=== PATIENT | female | born 1970 | race Two or more races ===

== ENCOUNTER 2025-03-31 10:41 | Inpatient (IN) | payer OTHER ==
[~2025-03-31] VITALS: Ht 167.6 cm; Wt 81.6 kg
[2025-03-31] MEDS ORDERED: RESTORIL30 M1 PO (12:50)
[2025-03-31] MEDS ORDERED: DIVALPROEX SOD500 M1 PO (12:51)
[2025-03-31] MEDS ORDERED: CLONAZEPAM0.5 M1 PO (12:51)
[2025-03-31] MEDS ORDERED: HORIZANT300 MG (12:52)
[2025-03-31] MEDS ORDERED: FORFIVO XL450 MG PO (12:52)
[2025-03-31] MEDS ORDERED: SEROQUEL400 MG (12:53)
[2025-03-31] MEDS ORDERED: ACTOS30 MG (12:53)
[2025-03-31] MEDS ORDERED: RAMIPRIL5 MG (12:54)
[2025-03-31] MEDS ORDERED: LIPOFEN150 MG PO (12:54)
[2025-03-31] MEDS ORDERED: SIMVASTATIN40 MG (12:55)
[2025-03-31] MEDS ORDERED: LANTUS SOL100 UNIT/1 (12:56)
--- NOTE | 2025-03-31 13:02 | NUR ---
PTE ALERTA Y ORIENTADA REFIERE QUE SUFRIO CAIDA EN EL HOGAR QUE RESIDE Y QUE EL A CARLTON LA REFIRIO PARA SER OPERADA POR EL MISMO.
[2025-03-31] MEDS ORDERED: 0.9 % SODIUM CHLORIDE 1,000 ML IV SCH ×2 (13:15→17:30)
--- NOTE | 2025-03-31 14:05 | NUR ---
SE ORIENTA A PTE SOBRE TX MEDICO EL MISMO INDICA ENTENDER Y ACEPTAR, SE VICTORIANO MUESTRAS DE LAB MAS SE ADMINISTRA MEDICAMENTOS RISSA ORDEN MEDICA BAJO MEDIDAS ASEPTICAS.
[2025-03-31 14:07] LABS: BASO % 0.2 % (0.1-1.2); EOS # 0.08 (0.04-0.54); EOS % 1.6 % (0.7-7.0); LYMPH # 1.59 (1.18-3.74); LYMPH % 32.4 % (19.3-53.1); MEAN PLATELET VOLUME 9.50 fl (9.4-12.4); MONO # 0.36 (0.24-0.82); MONO % 7.3 % (4.7-12.5); NEUT # 2.80 (1.56-6.13); NEUT % 57.3 % (34.0-71.1); RED CELL DISTRIBUTION WIDTH 14.9 % (11.6-14.4)
[2025-03-31 14:32] LABS: BUN CREA RATIO 19.0 (7.0-25.0); CREATININE SERUM 1.08 mg/dL (0.55-1.02); GFR 52.67; GLUCOSE FASTING 77.0 mg/dL (65-100); OSMOLALITY SERUM 283.0 MOSM/KG (275-295)
[2025-03-31 14:34] LABS: INR 1.03
[2025-03-31 14:37] LABS: COVID-19 AG NEGATIVE (NEGATIVE)
[2025-03-31 15:38] LABS: URINE APPEARANCE Clear; URINE BILIRRUBIN Negative (NEGATIVE); URINE BLOOD Negative; URINE COLOR Yellow; URINE GLUCOSE Negative (NEGATIVE); URINE KETONE Negative (NEGATIVE); URINE LEUKOCYTE Trace; URINE NITRATE Negative; URINE PROTEIN Negative (NEGATIVE); URINE UROBILINOGEN 2.0 E.U./dl
[2025-03-31 15:42] LABS: URINE BACTERIA 34.8 uL (0.0-1933); URINE EPITHELIAL CELLS 4.3 uL (0.0-38.8); URINE RBC 15.3 uL (0.0-20.8); URINE WBC 7.0 uL (0.0-23.2)
[2025-03-31 15:55] LABS: URINE CAST 0.14 uL (0.0-1.40)
[2025-03-31] MEDS ORDERED: FAMOTIDINE/PF 20 MG in 0.9 % SODIUM CHLORIDE 8 ML IV PUSH SCH (17:22)
[2025-03-31] MEDS ORDERED: DIVALPROEX SODIUM 500 MG TABLET.DR PO SCH (17:23)
[2025-03-31] MEDS ORDERED: QUETIAPINE FUMARATE 100 MG TABLET PO SCH (17:24)
[2025-03-31] MEDS ORDERED: BUPROPION HCL 150 MG TABLET.SA PO SCH (17:24)
[2025-03-31] MEDS ORDERED: DEXTROSE 50 % IN WATER 0.5 G/ML DISP.SYRIN IV PRN (17:30)
[2025-03-31] MEDS ORDERED: ACETAMINOPHEN 500 MG GEL..CAP PO PRN (17:30)
[2025-03-31] MEDS ORDERED: ONDANSETRON HCL 4 MG in 0.9 % SODIUM CHLORIDE 50 ML IV PRN (17:30)
[2025-03-31] MEDS ORDERED: INSULIN LISPRO 1,000 UNIT/10 ML UNITS SUBCUTANEO PRN (17:30)
[2025-03-31] MEDS ORDERED: TEMAZEPAM 15 MG CAPSULE PO SCH (21:00)
[2025-03-31] MEDS ORDERED: CLONAZEPAM 0.5 MG TABLET PO SCH (21:00)
[2025-03-31 21:35] VITALS: BP 100/54
[2025-04-01 02:30] VITALS: BP 117/72; O2SAT 96
[2025-04-01] MEDS ORDERED: DEXTROSE 50 % IN WATER 0.5 G/ML VIAL IV PRN (07:00)
[2025-04-01 08:20] VITALS: BP 138/85; O2SAT 96
[2025-04-01] MEDS ORDERED: RAMIPRIL 5 MG CAPSULE PO SCH (09:00)
[2025-04-01] MEDS ORDERED: DIVALPROEX SODIUM 500 MG TABLET.DR PO SCH (09:00)
[2025-04-01] MEDS ORDERED: ENALAPRILAT DIHYDRATE 1.25 MG/ML VIAL IV PRN (09:30)
[2025-04-01 11:00] LABS: BASO % 0.2 % (0.1-1.2); EOS # 0.09 (0.04-0.54); EOS % 1.7 % (0.7-7.0); LYMPH # 1.66 (1.18-3.74); LYMPH % 31.6 % (19.3-53.1); MEAN PLATELET VOLUME 9.20 fl (9.4-12.4); MONO # 0.53 (0.24-0.82); MONO % 10.1 % (4.7-12.5); NEUT # 2.92 (1.56-6.13); NEUT % 55.4 % (34.0-71.1); RED CELL DISTRIBUTION WIDTH 15.1 % (11.6-14.4)
[2025-04-01] MEDS ORDERED: TRANEXAMIC ACID 100MG/1ML (1000MG) AMPUL ONE (13:09)
[2025-04-01] MEDS ORDERED: LIDOCAINE HCL 1%/EPINEPHRINE 20ML VIAL IJ ONE (13:09)
[2025-04-01] MEDS ORDERED: BUPIVACAINE HCL/MPF 0.5% 30ML VIAL ONE (13:09)
[2025-04-01] MEDS ORDERED: VANCOMYCIN HCL 1,000 MG VIAL ONE (14:28)
[2025-04-01] MEDS ORDERED: ISOPROPYL ALCOHOL 30 ML OUNCE TOP ONE (15:00)
[2025-04-01] MEDS ORDERED: TRANEXAMIC ACID 100MG/1ML (1000MG) AMPUL IV ONE (15:00)
[2025-04-01] MEDS ORDERED: CEFAZOLIN SODIUM 1,000 MG VIAL IV ONE (15:00)
[2025-04-01] MEDS ORDERED: ENALAPRILAT DIHYDRATE 1.25 MG/ML VIAL IV ONE (16:11)
[2025-04-01] MEDS ORDERED: ENALAPRILAT DIHYDRATE 2.5 MG/2 ML VIAL IV ONE (16:30)
[2025-04-01] MEDS ORDERED: KETOROLAC TROMETHAMINE 30 MG VIAL ONE (16:42)
[2025-04-01] MEDS ORDERED: SIMVASTATIN 40 MG TABLET PO SCH (17:00)
[2025-04-01] MEDS ORDERED: GABAPENTIN 300 MG CAPSULE PO SCH (17:00)
[2025-04-01] MEDS ORDERED: POVIDONE-IODINE 118 ML BOTT TOP ONE (17:07)
[2025-04-01] MEDS ORDERED: MORPHINE SULFATE 4 MG/ML VIAL IV PRN (18:15)
[2025-04-01] MEDS ORDERED: ONDANSETRON HCL 2 MG/ML VIAL IV PRN (18:15)
[2025-04-01] MEDS ORDERED: MORPHINE SULFATE 2 MG/ML CARTRIDGE IV ONE (18:15)
[2025-04-01] MEDS ORDERED: SODIUM CHLORIDE 0.45 % 1,000 ML IV SCH (18:15)
[2025-04-01] MEDS ORDERED: MORPHINE SULFATE 4 MG/ML VIAL IV ONE (19:40)
[2025-04-01] MEDS ORDERED: GENTAMICIN SULFATE 40 MG/ML VIAL IV SCH (21:00)
[2025-04-02] MEDS ORDERED: CEFAZOLIN SODIUM 1,000 MG VIAL IV SCH
[2025-04-02 02:56] VITALS: BP 112/70; O2SAT 97
[2025-04-02 03:33] LABS: BASO % 0.2 % (0.1-1.2); EOS # 0.08 (0.04-0.54); EOS % 1.5 % (0.7-7.0); LYMPH # 1.22 (1.18-3.74); LYMPH % 23.5 % (19.3-53.1); MEAN PLATELET VOLUME 10.00 fl (9.4-12.4); MONO # 0.57 (0.24-0.82); MONO % 11.0 % (4.7-12.5); NEUT # 3.28 (1.56-6.13); NEUT % 63.0 % (34.0-71.1); RED CELL DISTRIBUTION WIDTH 15.9 % (11.6-14.4)
[2025-04-02] MEDS ORDERED: INTEGRA PLUS C1 EACH PO (08:18)
[2025-04-02] MEDS ORDERED: DUI500 PO (08:19)
[2025-04-02] MEDS ORDERED: TRAM1TAB98 PO (08:20)
[2025-04-02] MEDS ORDERED: BACITRACIN 28.35 GM OINT.TUBE TOP SCH (09:00)
[2025-04-02] MEDS ORDERED: IRON FUM,PS/FOLIC/BCOMP,C NO.9 1 CAP CAPSULE PO SCH (09:00)
[2025-04-02] MEDS ORDERED: SENNA/DOCUSATE SODIUM 1 TAB TABLET PO SCH (09:00)
== END 2025-04-02 08:27 | disposition home health service (06) | DRG 483 ==
LOC: ER 11:11 → MEDI 17:35
PROVIDERS: Emergency Medicine; Orthopaedic Surgery Sports Medicine; ADMIT Internal Medicine; ATTEND Internal Medicine
PROC: 0LS40ZZ Reposition Left Upper Arm Tendon, Open Approach (ICD-10-PCS; 2025-04-01)
PROC: 0RHK04Z Insertion of Internal Fixation Device into Left Shoulder Joint, Open Approach (ICD-10-PCS; 2025-04-01)
PROC: 30233N1 Transfusion of Nonautologous Red Blood Cells into Peripheral Vein, Percutaneous Approach (ICD-10-PCS; 2025-04-01)
PROC: 0RRK00Z Replacement of Left Shoulder Joint with Reverse Ball and Socket Synthetic Substitute, Open Approach (ICD-10-PCS; principal; 2025-04-01 16:00)
DX: S42.302A Unspecified fracture of shaft of humerus, left arm, initial encounter for closed fracture (principal); D64.9 Anemia, unspecified; E78.5 Hyperlipidemia, unspecified; E11.9 Type 2 diabetes mellitus without complications; Z79.4 Long term (current) use of insulin; I25.10 Atherosclerotic heart disease of native coronary artery without angina pectoris; I11.9 Hypertensive heart disease without heart failure; F31.9 Bipolar disorder, unspecified; W13.3XXA Fall through floor, initial encounter; Y93.9 Activity, unspecified; Y92.002 Bathroom of unspecified non-institutional (private) residence as the place of occurrence of the external cause